=== PATIENT | female | born 1975 | race Native Hawaiian/Other Pacific Islander ===

== ENCOUNTER 2021-04-06 08:37 | Day surgery (SDC) | payer OTHER ==
[2021-03-14 12:19] LABS: Mean Corpuscular HGB Conc 29 % (30-34); Platelet Count 466 K/mm3 (140-440); Red Blood Count 4.37 M/mm3 (3.65-5.03); Red Cell Distribution Width 18.8 % (13.2-15.2)
[2021-03-14 12:28] LABS: Hematocrit 26.3 % (30.3-42.9); Hemoglobin 7.7 gm/dl (10.1-14.3); Mean Corpuscular Volume 60 fl (79-97)
--- NOTE | 2021-04-05 13:51 | History and Physical Report ---
History of Present Illness Date of examination: 03/14/21 Chief complaint: Dysfunctional Uterine Bleeding, Anemia History of present illness: Pt is a 46 year old female who presents for surgical management of dysfunctional uterine bleeding and uterine fibroids. 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 ) [employer]IL [employer]IN OPERATOR History: fibroids Family/Genetic History: none Social history: no significant social history - Obstetrical History : 3 Para: 3 Hx # Term Pregnancies: 3 Number of Pregnancies: 0 Spontaneous Abortions: 0 Induced : 0 Number of Living Children: 3 Medications and Allergies Allergies Allergy/AdvReac Type Severity Reaction Status Date / Time No Known Allergies Allergy Unverified 03/10/21 17:01 Home Medications Medication Instructions Recorded Confirmed Last Taken Type Albuterol Sulfate [Proventil Hfa] 2 puff IH Q4H PRN 03/14/21 03/14/21 Unknown History Fluticasone/Umeclidin/Vilanter 1 puff INHALATION DAILY 03/14/21 03/14/21 Unknown History [Trelegy Ellipta 200-62.5-25] Tiotropium [Spiriva] 18 mcg IH QDAY PRN 03/14/21 03/14/21 Unknown History amLODIPine [Norvasc] 10 mg PO HS 03/14/21 03/14/21 Unknown History Active Meds: Active Medications Lactated Ringer's (Lactated Ringers) 1,000 mls @ 75 mls/hr IV DIRECT RAMIN Cefazolin Sodium (Ancef/Sterile Water 2 Gm/20 Ml) 2 gm in 20 mls @ 80 mls/hr IV PREOP NR; Protocol Review of Systems All systems: negative - Vital Signs Vital signs: Vital Signs Temp Pulse Resp BP Pulse Ox 98.8 F 81 20 145/77 100 03/14/21 11:30 03/14/21 11:30 03/14/21 11:30 03/14/21 11:30 03/14/21 11:30 Temp Pulse Resp BP Pulse Ox 98.8 F 81 20 145/77 100 03/14/21 11:30 03/14/21 11:30 03/14/21 11:30 03/14/21 11:30 03/14/21 11:30 - Physical Exam Breasts: Positive: deferred Abdomen: Positive: soft (obese ) Uterus: Positive: normal size Extremities: Positive: normal Results Result Diagrams: 03/14/21 11:30 All other labs normal. Assessment and Plan A: Dysfunctional Uterine Bleeding Fibroid Uterus Anemia Obesity P: Proceed with exam under anesthesia, Myosure endometrial sampling, possible Myosure myomectomy, possible dilation and curettage, Novasure endometrial ablation and other indicated procedures
[2021-04-06] MEDS ORDERED: ceFAZolin/Water 2 GM/20 ML 2 GM/20 ML SYRINGE IV NR (09:00)
[2021-04-06] MEDS ORDERED: LACTATED RINGERS 1,000 ML IV SCH (09:00)
--- NOTE | 2021-04-06 09:10 | Anesthesia Day of Surgery ---
Anesthesia Day of Surgery - Day of Surgery Patient Examined: Yes Patient H&P Reviewed: Yes Patient is NPO: Yes
--- NOTE | 2021-04-06 09:14 | Anesthesia Consultation ---
Anesthesia Consult and Med Hx Date of service: 04/06/21 - Airway Anesthetic Teeth Evaluation: Chipped, Partials ROM Head & Neck: Adequate Mental/Hyoid Distance: Adequate Mallampati Class: Class II Intubation Access Assessment: Probably Good - Pre-Operative Health Status ASA Pre-Surgery Classification: ASA3 Proposed Anesthetic Plan: General - Pulmonary Hx Asthma: Yes (Last flare up about 2 weeks ago) Hx Sleep Apnea: No - Cardiovascular System Hx Hypertension: Yes - Central Nervous System Hx Psychiatric Problems: No - Hematic Hx Anemia: Yes - Other Systems Hx Alcohol Use: Yes (Occas) Hx Cancer: No Hx Obesity: Yes
[2021-04-06] MEDS ORDERED: ONDANSETRON 4 MG/2 ML INJ IV PRN (09:30)
[2021-04-06] MEDS ORDERED: HYDROmorphone 1 MG/1 ML INJ IV PRN ×2 (09:30→10:00)
[2021-04-06] MEDS ORDERED: HYDROmorphone 1 MG/1 ML INJ ONE (09:48)
[2021-04-06] MEDS ORDERED: propofoL 200 MG/20 ML VIAL IV ONE (09:49)
[2021-04-06] MEDS ORDERED: LIDOCAINE MPF (2%) 20 MG/1 ML VIAL 5 ML ONE (09:49)
[2021-04-06] MEDS ORDERED: MIDAZOLAM 2 MG/2 ML INJ IV NR (10:00)
[2021-04-06] MEDS ORDERED: dexAMETHasone 20 MG/5 ML VIAL ONE (10:42)
[2021-04-06] MEDS ORDERED: SODIUM CHLORIDE 0.9% IRRIG SOLN 2000 ML IR ONE (10:55)
[2021-04-06] MEDS ORDERED: SILVER NITRATE APPLICATOR 1 EA TP ONE ×2 (11:40→11:42)
[2021-04-06] MEDS ORDERED: ONDANSETRON 4 MG/2 ML INJ ONE (11:44)
--- NOTE | 2021-04-06 11:58 | Operative Report ---
Operative Report Operative Report: Date of Procedure: April 06, 2021 Preoperative Diagnosis: 1) Dysfunctional Uterine Bleeding 2) Fibroid Uterus 3) Anemia Postoperative Diagnosis: Same Procedure: 1) Hysteroscopy 2) Myosure endometrial sampling 3) Novasure endometrial ablation Surgeon: Cindi Moses MD Findings: 1) Anteverted uterus that sounded to 10 cm 2) Proliferative endometrium visible on hysteroscopy Anesthesia: General with LMA EBL: 50 mL Deficit: 300 mL Urine output: 50 mL, clear prior to the procedure Specimen: Endometrial curettings to pathology Complications: None. Counts correct x 2 Disposition: Stable to PACU Indication for Procedure: The patient is a 46 year old who presents for surgical management of dysfunctional uterine bleeding. Operation in detail: After the risks, complications, alternatives and benefits were signed to the patient she gave informed consent for the procedure. She was subsequently taken to the operating room with her IV noted to be running well and placed in the dorsal supine position. SCDs were noted to be in place and functioning. General anesthesia was then induced without difficulty. The patient was then placed in the dorsal lithotomy position and prepped and draped in normal sterile fashion. A timeout was performed. An exam under anesthesia revealed an anteverted mobile uterus. The bladder was then drained with a catheter yielding 50 mL of clear urine. An open sided bivalve speculum was placed into the vagina for adequate visualization of the cervix. A single-tooth tenaculum was placed on the anterior lip of the cervix for traction. The uterus was then gently sounded to 10 cm. The cervix was then serially dilated with Ballard dilators to a #19. The hysteroscope was then introduced into the uterine cavity with findings of a proliferative endometrium. At this time, the Myosure device was introduced and the endometrial cavity was sampled performed per protocol. Subsequently all instruments were removed from inside the uterus atraumatically. At this time, attention was turned to the endometrial ablation. The cervical length was then sounded to 4.5 cm and the uterus was then sounded to 10 cm. The cavity length was then noted to be 5.5 cm. The disposable NovaSure device was connected to the RF controller. The NovaSure disposable device was deployed to the locked position and noted to fully extend. The device was then placed in the unlocked position. The disposable device was then inserted into the uterine cavity with traction on the tenaculum. The device was then seated per protocol. After moving the device back 0.5 cm, the device was moved superiorly and inferiorly and rotated clockwise and counterclockwise to 45. The cavity width at this time was noted to be 4.0 cm. The cervical collar was then advanced to the cervix. The cavity assessment was then initiated and passed. The ablation procedure was then initiated and lasted for 62 seconds. The cervical collar was moved away from the cervix, the device was moved to the unlocked position, and the disposable NovaSure device was removed from the uterine cavity. At this time the single-tooth tenaculum was removed from the cervix. The tenaculum puncture sites were hemostatic with use of pressure. All instruments were removed from the vagina atraumatically and the procedure was ended. The patient was replaced into the dorsal supine position and extubated without difficulty. She was subsequently taken to the PACU in stable condition. She tolerated the procedure well. All counts were correct 2.
--- NOTE | 2021-04-06 12:02 | Short Stay Summary ---
Short Stay Documentation Date of service: 04/06/21 - History H&P: dictated Social history: no significant social history - Allergies and Medications Current Medications: Allergies No Known Allergies Allergy (Unverified 03/10/21 17:01) Home Medications Medication Instructions Recorded Confirmed Last Taken Type Albuterol Sulfate [Proventil Hfa] 2 puff IH Q4H PRN 03/14/21 04/06/21 04/03/21 09:00 History Fluticasone/Umeclidin/Vilanter 1 puff INHALATION DAILY 03/14/21 04/06/21 04/05/21 17:00 History [Trelegy Ellipta 200-62.5-25] Tiotropium [Spiriva] 18 mcg IH QDAY PRN 03/14/21 03/14/21 Unknown History amLODIPine [Norvasc] 10 mg PO HS 03/14/21 03/14/21 Unknown History Active Medications Hydromorphone HCl (Hydromorphone 1 Mg/1 Ml Inj) 0.25 mg IV Q10MIN PRN PRN Reason: Pain, Moderate (4-6) Stop: 04/06/21 15:00 Hydromorphone HCl (Hydromorphone 1 Mg/1 Ml Inj) 0.5 mg IV Q10MIN PRN PRN Reason: Pain , Severe (7-10) Stop: 04/06/21 18:00 Lactated Ringer's (Lactated Ringers) 1,000 mls @ 75 mls/hr IV DIRECT RAMIN Last Admin: 04/06/21 09:20 Dose: 75 mls/hr Cefazolin Sodium (Ancef/Sterile Water 2 Gm/20 Ml) 2 gm in 20 mls @ 80 mls/hr IV PREOP NR; Protocol Stop: 04/06/21 20:00 Midazolam HCl (Midazolam 2 Mg/2 Ml Inj) 2 mg IV PREOP NR Stop: 04/06/21 23:59 Last Admin: 04/06/21 09:31 Dose: 2 mg Ondansetron HCl (Ondansetron 4 Mg/2 Ml Inj) 4 mg IV ONCE PRN PRN Reason: Nausea And Vomiting Stop: 04/06/21 18:00 - Physical exam Breasts: deferred - Brief post op/procedure progress note Date of procedure: 04/06/21 Pre-op diagnosis: 1) Dysfunctional Uterine Bleeding 2) Fibroid Uterus 3) Anemia Post-op diagnosis: same Procedure: Hysteroscopy, Myosure endometrial sampling, Novasure endometrial ablation Anesthesia: GETA (with LMA ) Findings: 1) Anteverted uterus that sounded to 10 cm 2) Proliferative endometrium visible on hysteroscopy Surgeon: ARIEL MOSES Estimated blood loss: 50-100ml (50 mL) Pathology: list (endometrial curettings) Specimen disposition: to lab Condition: stable - Hospital course Hospital course: This patient underwent hysteroscopy, MyoSure endometrial sampling, dilation and curettage and NovaSure endometrial ablation which he tolerated well. She was observed in the postanesthesia unit until she met discharge criteria. She will follow-up in the office in [address] Moses. - Disposition Condition at discharge: Stable - Discharge Diagnoses (1) DUB (dysfunctional uterine bleeding) Status: Acute (2) Fibroid uterus Status: Acute Qualifiers: Uterine leiomyoma location: unspecified location Qualified Code(s): D25.9 - Leiomyoma of uterus, unspecified (3) Anemia Status: Acute Qualifiers: Iron deficiency anemia type: chronic blood loss (4) Morbid obesity Status: Acute Short Stay Discharge Plan Activity: other (Nothing in vagina, no tub baths, no intercourse x 4 wks ) Weight Bearing Status: Full Weight Bearing Diet: regular Follow up with: PRIMARY MD FELIPE [Primary Care Provider] - 7 Days ARIEL MOSES MD [Staff Physician] - 7 Days Prescriptions: Ibuprofen [Motrin 800 MG tab] 800 mg PO Q8HR PRN #30 tablet PRN Reason: Pain, Moderate (4-6) oxyCODONE /ACETAMINOPHEN [Percocet 5/325] 1 tab PO Q6HR PRN #20 tablet PRN Reason: Pain
[2021-04-06] MEDS ORDERED: ALBUTEROL 2.5 MG/3 ML NEBU IH ONE ×2 (12:10→12:11)
--- NOTE | 2021-04-06 13:15 | Post Anesthesia Evaluation ---
- Post Anesthesia Evaluation Patient Participated: Yes Airway Patent: Yes Stable Respiratory Function: Yes Nausea/Vomiting: No Temp > 96.8F: Yes Pain Manageable: Yes Adequeate Hydration: Yes Anesthesia Complications: No Block Receding Appropriately: Not Applicable Patient on Ventilator: No
[2021-04-06 13:26] VITALS: BP 128/61
== END 2021-04-06 13:40 | disposition home or self-care (01) ==
LOC: OR 08:37
PROVIDERS: ATTEND Obstetrics & Gynecology
DX: N93.8 Other specified abnormal uterine and vaginal bleeding (principal); D64.9 Anemia, unspecified; N85.8 Other specified noninflammatory disorders of uterus; E66.01 Morbid (severe) obesity due to excess calories; I10 Essential (primary) hypertension; J45.909 Unspecified asthma, uncomplicated; Z20.822 Contact with and (suspected) exposure to COVID-19; Z79.899 Other long term (current) drug therapy; Z98.890 Other specified postprocedural states; Z72.89 Other problems related to lifestyle; Z68.41 Body mass index [BMI] 40.0-44.9, adult
CPT/HCPCS: 36415; 58563; 81025; 84703; 85027; 88305; C1782; J0690; J1100; J1170; J2250; J2405; J2704; J3490; J7120; U0003